=== PATIENT | male | born 1950 | race Caucasian/White ===

== ENCOUNTER → 2018-03-15 | Day surgery (SDC) | payer MEDICARE ==
[2018-03-12 14:26] LABS: BASOPHILS # (AUTO) 0.1 (0.0-0.1); BASOPHILS % 0.6 % (0.0-1.0); EOSINOPHILS # (AUTO) 0.1 (0.0-0.4); EOSINOPHILS % 1.2 % (0.0-6.0); HEMATOCRIT 38.6 % (38.2-49.6); HEMOGLOBIN 12.6 g/dL (14.0-18.0); LYMPHOCYTES # (AUTO) 1.8 (1.0-3.2); LYMPHOCYTES % 21.8 % (18.0-39.1); MEAN CORPUSCULAR HEMOGLOBIN 28.7 pg (28-32); MEAN CORPUSCULAR HGB CONC 32.6 g/dL (31-35); MEAN CORPUSCULAR VOLUME 87.9 fL (81-99); MONOCYTES # (AUTO) 0.8 (0.2-0.8); MONOCYTES % 8.9 % (4.4-11.3); NEUTROPHILS # (AUTO) 5.7 (2.1-6.9); NEUTROPHILS % 67.1 % (38.7-80.0); PLATELET COUNT 167 x10e3/uL (140-360); RED BLOOD COUNT 4.39 x10e6/uL (4.3-5.7); RED CELL DISTRIBUTION WIDTH 14.6 % (11.7-14.4)
[2018-03-12 14:46] LABS: ALANINE AMINOTRANSFERASE 25 IU/L (0-55); ALBUMIN 3.8 g/dL (3.5-5.0); ALBUMIN/GLOBULIN RATIO 1.2 (0.8-2.0); ALKALINE PHOSPHATASE 77 IU/L (40-150); ANION GAP 12.1 mmol/L (8-16); BLOOD UREA NITROGEN 21 mg/dL (7-26); BUN/CREATININE RATIO 18 (6-25); CALCIUM 9.7 mg/dL (8.4-10.2); CARBON DIOXIDE 28 mmol/L (22-29); CHLORIDE 105 mmol/L (98-107); CHOL/HDL RATIO 3.7 (3.9-4.7); CHOLESTEROL 172 MD/DL (0-199); CREATININE, SERUM 1.17 mg/dL (0.72-1.25); EST GLOMERULAR FILTRATION RATE > 60 ML/MIN (60-); GLUCOSE 100 mg/dL (74-118); HDL CHOLESTEROL 47 MG/DL (40-60); LDL CHOLESTEROL 107 MG/DL (60-130); POTASSIUM 4.1 mmol/L (3.5-5.1); SODIUM 141 mmol/L (136-145); TRIGLYCERIDES 92 MG/DL (0-149)
[~2018-03-15] VITALS: Ht 177.8 cm; Wt 78.9 kg
[2018-03-15] VITALS (7 sets, daily range): BP systolic 126–184; BP diastolic 58–95
[~2018-03-15] MED LIST: ADDERALL 30 MG30 MG PO; ALEVE220 MG PO; FENTANYL CITRATE/PF 100MCG/2 ML INJ ONE; HEPARIN SOD/SOD CHLORIDE 2,000 ML ONE; IOPAMIDOL 370 MG/ML 200 ML INFUS..BTL INJ ONE; LIDOCAINE HCL 2% LOCAL 20 ML VIAL ONE; MIDAZOLAM HCL 2 MG/2 ML VIAL ONE; SODIUM CHLORIDE 0.9% 1000ML 1,000 ML ONE; VERAPAMIL HCL 2.5 MG/ML 2 ML VIAL ONE; VIAGRA100 MG PO
--- NOTE | 2018-05-30 14:44 | Operative Report ---
DATE OF PROCEDURE: March 15, 2018 [employer] PROCEDURE NOTE INDICATIONS: Coronary artery disease. PROCEDURES PERFORMED: Left heart catheterization, selective coronary angiography. RECOMMENDATIONS 1. Electrophysiology evaluation. 2. Medical therapy for coronary artery disease. Access obtained in the right femoral artery. A 6-[place] sheath was placed. Diagnostic coronary angiogram revealed 50% left anterior descending artery proximal stenosis, diagonal with a 2 mm vessel with 80% stenosis, remaining left anterior descending artery had diffuse 30% to 50% stenosis of ramus intermedius, 80% stenosis with 2 mm vessel. Right coronary artery was dominant with diffuse 20% stenosis. Right posterior descending artery 50% stenosis. 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 The sheath was removed, manual pressure applied. Patient was observed in the hospital. Job#: [id number] LEOBARDO
== END | disposition home or self-care (01) ==
LOC: CATH LAB 10:30
PROVIDERS: ATTEND Internal Medicine Interventional Cardiology
DX: I25.118 Atherosclerotic heart disease of native coronary artery with other forms of angina pectoris (principal); I44.1 Atrioventricular block, second degree; I87.2 Venous insufficiency (chronic) (peripheral); Q82.0 Hereditary lymphedema; L81.9 Disorder of pigmentation, unspecified; Z86.19 Personal history of other infectious and parasitic diseases; Z82.49 Family history of ischemic heart disease and other diseases of the circulatory system; Z82.3 Family history of stroke
CPT/HCPCS: 36415; 80053; 80061; 85025; 93454; C1887; J2001; J2250; J7030; Q9967; 36140; 77002; 93458